=== PATIENT | male | born 1990 | race Caucasian/White ===

== ENCOUNTER 2019-08-30 13:24 | Emergency (ER) | payer OTHER, SELFPAY ==
[~2019-08-30] VITALS: Ht 180.3 cm; Wt 84.8 kg
[2019-08-30 13:36] VITALS: Ht 180.3 cm; Wt 84.8 kg
[2019-08-30 14:29] VITALS: BP 130/67
== END 2019-08-30 14:29 | disposition home or self-care (01) ==
LOC: ED 13:24
DX: R51 Headache (principal); R05 Cough; F17.210 Nicotine dependence, cigarettes, uncomplicated; Z88.1 Allergy status to other antibiotic agents; Z88.8 Allergy status to other drugs, medicaments and biological substances
CPT/HCPCS: J1885